=== PATIENT | male | born 1980 | race Caucasian/White ===

== ENCOUNTER 2021-02-13 19:18 | Emergency (ER) | payer SELFPAY ==
[~2021-02-13] VITALS: Ht 175.3 cm; Wt 82.6 kg
[2021-02-13 19:25] VITALS: BP_SYST 152
[2021-02-13] MEDS ORDERED: CEPH250C PO (22:51)
[2021-02-13] MEDS ORDERED: cephALEXin 500 MG CAPSULE PO ONE (23:00)
[2021-02-13] MEDS ORDERED: DIPH-TET-PERTUS Vaccine 0.5 ML VIAL (ADACEL) I.M. ONE (23:00)
[2021-02-13 23:02] VITALS: BP_SYST 152
== END 2021-02-13 23:02 | disposition home or self-care (01) ==
LOC: SED 19:18
DX: S60.562A Insect bite (nonvenomous) of left hand, initial encounter (principal); L03.114 Cellulitis of left upper limb; Z88.6 Allergy status to analgesic agent; Z79.899 Other long term (current) drug therapy; W57.XXXA Bitten or stung by nonvenomous insect and other nonvenomous arthropods, initial encounter; Y93.89 Activity, other specified; Y92.89 Other specified places as the place of occurrence of the external cause; Y99.8 Other external cause status
CPT/HCPCS: 90715; 99283

== ENCOUNTER 2023-02-04 16:38 | Emergency (ER) | payer MEDICAID ==
[~2023-02-04] VITALS: Ht 175.3 cm; Wt 81.6 kg
[~2023-02-04 16:38] MED LIST: CEPH250C PO
[2023-02-04 16:58] VITALS: BP_SYST 140
[2023-02-04] MEDS ORDERED: ONDANSETRON HCL 4 MG/2 ML VIAL IVP ONE (17:15)
[2023-02-04] MEDS ORDERED: MORPHINE 4 MG INJ. 4 MG/ML VIAL IVP ONE (17:15)
[2023-02-04] MEDS ORDERED: NACL 0.9% 1,000 ML IV ONE (17:15)
[2023-02-04] MEDS ORDERED: ACET-2634 PO (19:21)
[2023-02-04] MEDS ORDERED: LIDO1ADH77 TP (19:22)
[2023-02-04 19:39] VITALS: BP_SYST 137
== END 2023-02-04 19:39 | disposition home or self-care (01) ==
LOC: SED 16:38
DX: R07.89 Other chest pain (principal); K57.90 Diverticulosis of intestine, part unspecified, without perforation or abscess without bleeding; R06.02 Shortness of breath; Z88.6 Allergy status to analgesic agent; Z79.899 Other long term (current) drug therapy
CPT/HCPCS: 99285; 71260; 96374; 96361; 96375; 76376; 74177; J2405; J2270; Q9967; J7030